=== PATIENT | female | born 1955 | race American Indian/Alaskan Native ===

== ENCOUNTER 2017-06-03 01:28 | Emergency (ER) | payer MEDICAID, OTHER ==
[2017-06-03 03:12] VITALS: BP 160/93
--- NOTE | 2017-06-03 03:46 | Emergency Department Report ---
HPI - General Chief Complaint: Urogenital-Female Time Seen by Provider: 06/03/17 03:23 - HPI HPI: This is a 62-year-old female with no prior history to me presents to ed complaining of labia pain 3 days. patient states 3 days ago she noticed that read boil on her left labia. patient states couple of days ago she noticed some pus- like discharge out of the boil. patient states she noticed that it drains periodically throughout the day. She denies any vaginal discharge, dysuria, vaginal bleed, fever/chills/nausea vomiting ED Past Medical Hx - Past Medical History Hx Hypertension: Yes Hx CVA: Yes Hx Diabetes: No Hx Arthritis: Yes (back) Hx Asthma: Yes Hx COPD: No Hx HIV: No - Surgical History Additional Surgical History: partial hysterectomy - Social History Smoking Status: Never Smoker Substance Use Type: None - Medications Home Medications: Home Medications Medication Instructions Recorded Confirmed Last Taken Type Calcium 600+D3 Plus Caplet 1 tab PO DAILY 04/05/16 04/05/16 Unknown History Fish Oil 1,000 mg Softgel 1 tab PO DAILY 04/05/16 04/05/16 Unknown History Glucosamine HCl 1 tab PO DAILY 04/05/16 04/05/16 Unknown History Multivitamins 1 tab PO DAILY 04/05/16 04/05/16 Unknown History Sucralfate 1 gm PO QID 04/05/16 04/05/16 Unknown History amLODIPine 10 mg PO DAILY 04/05/16 04/05/16 Unknown History Clopidogrel [Plavix] 75 mg PO QDAY #30 tablet 04/06/16 Unknown Rx Simvastatin [Zocor TAB] 20 mg PO QHS #30 tablet 04/06/16 Unknown Rx HYDROcodone/APAP 5-325 [[place] 1 each PO Q6HR PRN #20 tablet 08/12/16 Unknown Rx 5/325] Ibuprofen [Motrin] 600 mg PO Q8H PRN #21 tablet 08/12/16 Unknown Rx Ibuprofen [Motrin] 800 mg PO Q8HR PRN #30 tablet 06/03/17 Unknown Rx Sulfamethoxazole/Trimethoprim 1 each PO BID #14 tablet 06/03/17 Unknown Rx [Bactrim DS TAB] ED Review of Systems ROS: Stated complaint: BUMP IN VAGINAL AREA Other details as noted in HPI Constitutional: denies: chills, fever Eyes: denies: eye pain, eye discharge, vision change ENT: denies: ear pain, throat pain Respiratory: denies: cough, shortness of breath, wheezing Cardiovascular: denies: chest pain, palpitations Endocrine: no symptoms reported Gastrointestinal: denies: abdominal pain, nausea, diarrhea Genitourinary: denies: urgency, dysuria, discharge Musculoskeletal: denies: back pain, joint swelling, arthralgia Skin: denies: rash, lesions Neurological: denies: headache, weakness, paresthesias Psychiatric: denies: anxiety, depression Hematological/Lymphatic: denies: easy bleeding, easy bruising Physical Exam - Physical Exam Vital Signs: Vital Signs 06/03/17 03:05 Temperature 98.1 F Pulse Rate 100 H Blood Pressure 160/93 O2 Sat by Pulse 100 Oximetry Physical Exam: GENERAL: Alert and oriented x3, no apparent distress, Normal Gait, atraumatic. HEAD: Head is normocephalic and a-traumatic. LUNGS: Symetrical with respiration, No wheezing, no rales or crackles, CTAB. HEART: S1, S2 present, regular rate and rhythm without murmur, no rubs, no gallops. Non tender to palpation GENITOURINARY: External genitalia with left labia erythema surrounding a drained small abcsess, non flactulance, tender to palpation. 1 cm in diameter No exudate or discharge. No masses are palpated. SKIN: Warm and dry, No lesions, No ulceration or induration present. ED Course Vital Signs 06/03/17 03:05 Temperature 98.1 F Pulse Rate 100 H Blood Pressure 160/93 O2 Sat by Pulse 100 Oximetry ED Medical Decision Making - Medical Decision Making 62-year-old female presents with injuring small abscess of the labia ED course: Discussed the patient is sent home on antibiotics. Discussed sitz baths with patient 3 times a day. Discussed the patient to keep external vaginal trauma no soaking baths a week. Discussed pain control with Motrin as needed. Vital signs are normal patient has no acute distress. Critical care attestation.: If time is entered above; I have spent that time in minutes in the direct care of this critically ill patient, excluding procedure time. ED Disposition Clinical Impression: Labial abscess, Cellulitis of labia majora Disposition: TO HOME OR SELFCARE Is pt being admited?: No Does the pt Need Aspirin: No Condition: Stable Instructions: Abscess (ED) Additional Instructions: Sitz baths 3 times a day Take oral antibiotic. Follow-up with [facility] as referred Prescriptions: Ibuprofen [Motrin] 800 mg PO Q8HR PRN #30 tablet PRN Reason: Pain Sulfamethoxazole/Trimethoprim [Bactrim DS TAB] 1 each PO BID #14 tablet Referrals: YAQUELIN THOMAS MD [Referring] - 3-5 Days Forms: Work/School Release Form(ED) Time of Disposition: 03:51
== END 2017-06-03 04:15 | disposition home or self-care (01) ==
LOC: ED 01:28
DX: N76.4 Abscess of vulva (principal); N76.2 Acute vulvitis; I10 Essential (primary) hypertension; I63.9 Cerebral infarction, unspecified; M19.90 Unspecified osteoarthritis, unspecified site; J45.909 Unspecified asthma, uncomplicated; Z90.710 Acquired absence of both cervix and uterus
CPT/HCPCS: 99282

== ENCOUNTER 2017-11-24 11:24 | Outpatient (CLI) | payer OTHER, MEDICAID ==
--- NOTE | 2017-11-29 12:54 | XRay Report ---
CHEST 2 VIEWS INDICATION: COPD. COMPARISON: 11/01/2015 FINDINGS: PA and lateral chest radiographs again demonstrate normal cardiomediastinal silhouette. Clear, well-expanded lungs. Multilevel thoracic spondylosis. CONCLUSION: No acute chest process, stable. Thank you for the opportunity to participate in this patient's care.
== END 2017-11-24 11:25 | disposition home or self-care (01) ==
LOC: XRAY 11:24
PROVIDERS: ATTEND Internal Medicine
DX: J44.9 Chronic obstructive pulmonary disease, unspecified (principal); M47.894 Other spondylosis, thoracic region; I63.9 Cerebral infarction, unspecified; I10 Essential (primary) hypertension; M19.90 Unspecified osteoarthritis, unspecified site; Z90.710 Acquired absence of both cervix and uterus
CPT/HCPCS: 36415; 71046; 82785; 84436; 84443

== ENCOUNTER 2018-01-08 09:52 | Emergency (ER) | payer OTHER, MEDICAID ==
--- NOTE | 2018-01-08 11:13 | Emergency Department Report ---
ED General Adult HPI - General Chief complaint: Adult Asthma Stated complaint: ROYA Time Seen by Provider: 01/08/18 10:56 Source: patient, EMS Mode of arrival: Stretcher Limitations: No Limitations - History of Present Illness Initial comments: Patient presents to emergency department with a chief complaint of shortness of breath. Patient has a history of asthma states that she's been having issues breathing since her trip to [facility] last week. Patient denies any chest pain, abdominal pain, headache. Is not having relief at home medications. -: Gradual Radiation: non-radiation Severity scale (0 -10): 0 Consistency: constant Improves with: none Worsens with: none Associated Symptoms: denies other symptoms Treatments Prior to Arrival: none - Related Data Home Medications Medication Instructions Recorded Confirmed Last Taken Calcium 600+D3 Plus Caplet 1 tab PO DAILY 04/05/16 04/05/16 Unknown Fish Oil 1,000 mg Softgel 1 tab PO DAILY 04/05/16 04/05/16 Unknown Glucosamine HCl 1 tab PO DAILY 04/05/16 04/05/16 Unknown Multivitamins 1 tab PO DAILY 04/05/16 04/05/16 Unknown Sucralfate 1 gm PO QID 04/05/16 04/05/16 Unknown amLODIPine 10 mg PO DAILY 04/05/16 04/05/16 Unknown Previous Rx's Medication Instructions Recorded Last Taken Type Clopidogrel [Plavix] 75 mg PO QDAY #30 tablet 04/06/16 Unknown Rx Simvastatin [Zocor TAB] 20 mg PO QHS #30 tablet 04/06/16 Unknown Rx HYDROcodone/APAP 5-325 [[place] 1 each PO Q6HR PRN #20 tablet 08/12/16 Unknown Rx 5/325] Ibuprofen [Motrin] 600 mg PO Q8H PRN #21 tablet 08/12/16 Unknown Rx Ibuprofen [Motrin] 800 mg PO Q8HR PRN #30 tablet 06/03/17 Unknown Rx Sulfamethoxazole/Trimethoprim 1 each PO BID #14 tablet 06/03/17 Unknown Rx [Bactrim DS TAB] ALBUTEROL Inhaler [ProAir HFA 2 puff IH QID PRN #1 inhalation 01/08/18 Unknown Rx Inhaler] Prednisone [predniSONE 10 mg 10 mg PO .TAPER #1 tab.ds.pk 01/08/18 Unknown Rx (6-Day Pack, 21 Tabs)] Allergies Allergy/AdvReac Type Severity Reaction Status Date / Time codeine AdvReac Itching Verified 01/08/18 10:33 iodine AdvReac Itching Verified 01/08/18 10:33 ED Review of Systems ROS: Stated complaint: ROYA Other details as noted in HPI Constitutional: denies: chills, fever Eyes: denies: eye pain, eye discharge, vision change ENT: denies: ear pain, throat pain Respiratory: shortness of breath, wheezing. denies: cough Cardiovascular: denies: chest pain, palpitations Endocrine: no symptoms reported Gastrointestinal: denies: abdominal pain, nausea, diarrhea Genitourinary: denies: urgency, dysuria, discharge Musculoskeletal: denies: back pain, joint swelling, arthralgia Skin: denies: rash, lesions Neurological: denies: headache, weakness, paresthesias Psychiatric: denies: anxiety, depression Hematological/Lymphatic: denies: easy bleeding, easy bruising ED Past Medical Hx - Past Medical History Previous Medical History?: Yes Hx Hypertension: Yes Hx CVA: Yes (TIA) Hx Diabetes: No Hx Arthritis: Yes (back) Hx Asthma: Yes Hx COPD: No Hx HIV: No - Surgical History Past Surgical History?: Yes Additional Surgical History: partial hysterectomy - Social History Smoking Status: Former Smoker Substance Use Type: Alcohol - Medications Home Medications: Home Medications Medication Instructions Recorded Confirmed Last Taken Type Calcium 600+D3 Plus Caplet 1 tab PO DAILY 04/05/16 04/05/16 Unknown History Fish Oil 1,000 mg Softgel 1 tab PO DAILY 04/05/16 04/05/16 Unknown History Glucosamine HCl 1 tab PO DAILY 04/05/16 04/05/16 Unknown History Multivitamins 1 tab PO DAILY 04/05/16 04/05/16 Unknown History Sucralfate 1 gm PO QID 04/05/16 04/05/16 Unknown History amLODIPine 10 mg PO DAILY 04/05/16 04/05/16 Unknown History Clopidogrel [Plavix] 75 mg PO QDAY #30 tablet 04/06/16 Unknown Rx Simvastatin [Zocor TAB] 20 mg PO QHS #30 tablet 04/06/16 Unknown Rx HYDROcodone/APAP 5-325 [[place] 1 each PO Q6HR PRN #20 tablet 08/12/16 Unknown Rx 5/325] Ibuprofen [Motrin] 600 mg PO Q8H PRN #21 tablet 08/12/16 Unknown Rx Ibuprofen [Motrin] 800 mg PO Q8HR PRN #30 tablet 06/03/17 Unknown Rx Sulfamethoxazole/Trimethoprim 1 each PO BID #14 tablet 06/03/17 Unknown Rx [Bactrim DS TAB] ALBUTEROL Inhaler [ProAir HFA 2 puff IH QID PRN #1 inhalation 01/08/18 Unknown Rx Inhaler] Prednisone [predniSONE 10 mg 10 mg PO .TAPER #1 tab.ds.pk 01/08/18 Unknown Rx (6-Day Pack, 21 Tabs)] ED Physical Exam - General Limitations: No Limitations General appearance: alert, in no apparent distress - Head Head exam: Present: atraumatic, normocephalic - Eye Eye exam: Present: normal appearance, PERRL, EOMI - ENT ENT exam: Present: mucous membranes moist - Neck Neck exam: Present: normal inspection - Respiratory Respiratory exam: Present: normal lung sounds bilaterally, wheezes, other (mild expiratory wheezing ). Absent: respiratory distress, rales - Cardiovascular Cardiovascular Exam: Present: regular rate, normal rhythm. Absent: systolic murmur, diastolic murmur, rubs, gallop - GI/Abdominal GI/Abdominal exam: Present: soft, normal bowel sounds. Absent: distended, tenderness - Extremities Exam Extremities exam: Present: normal inspection - Back Exam Back exam: Present: normal inspection - Neurological Exam Neurological exam: Present: alert, oriented X3 - Psychiatric Psychiatric exam: Present: normal affect, normal mood - Skin Skin exam: Present: warm, dry, intact, normal color. Absent: rash ED Course Vital Signs 01/08/18 10:26 Temperature 98.1 F Pulse Rate 118 H Respiratory 20 Rate Blood Pressure 135/81 O2 Sat by Pulse 98 Oximetry ED Medical Decision Making - Medical Decision Making Patient states after her breathing treatment she feels significant better and is ready to go home. Patient politely declined further workup. Critical care attestation.: If time is entered above; I have spent that time in minutes in the direct care of this critically ill patient, excluding procedure time. ED Disposition Clinical Impression: Asthma Disposition: DC-01 TO HOME OR SELFCARE Is pt being admited?: No Does the pt Need Aspirin: No Condition: Stable Instructions: Asthma (ED) Additional Instructions: Return if worse Prescriptions: ALBUTEROL Inhaler [ProAir HFA Inhaler] 2 puff IH QID PRN #1 inhalation PRN Reason: Shortness Of Breath Prednisone [predniSONE 10 mg (6-Day Pack, 21 Tabs)] 10 mg PO .TAPER #1 tab.ds.pk Referrals: PRIMARY CARE, [Primary Care Provider] - 3-5 Days Time of Disposition: 11:12
[2018-01-08 12:07] VITALS: BP 148/95
== END 2018-01-08 11:35 | disposition home or self-care (01) ==
LOC: ED 09:52
DX: J45.909 Unspecified asthma, uncomplicated (principal); I10 Essential (primary) hypertension; M19.90 Unspecified osteoarthritis, unspecified site; Z87.891 Personal history of nicotine dependence; Z90.711 Acquired absence of uterus with remaining cervical stump; Z86.73 Personal history of transient ischemic attack (TIA), and cerebral infarction without residual deficits; Z88.5 Allergy status to narcotic agent; Z91.02 Food additives allergy status
CPT/HCPCS: 99283

== ENCOUNTER 2018-01-18 10:58 | Emergency (ER) | payer OTHER, MEDICAID ==
[2018-01-18 11:37] VITALS: BP 173/94
== END 2018-01-18 12:00 | disposition left against medical advice (07) ==
LOC: ED 10:58
DX: I10 Essential (primary) hypertension (principal); M19.90 Unspecified osteoarthritis, unspecified site; J45.909 Unspecified asthma, uncomplicated; Z86.73 Personal history of transient ischemic attack (TIA), and cerebral infarction without residual deficits; Z90.711 Acquired absence of uterus with remaining cervical stump; Z53.21 Procedure and treatment not carried out due to patient leaving prior to being seen by health care provider
CPT/HCPCS: 93005; 93010

== ENCOUNTER 2018-07-13 16:12 | Emergency (ER) | payer MEDICAID, OTHER ==
[2018-07-13 16:29] VITALS: BP 140/79
[2018-07-13] MEDS ORDERED: TORADOL IM ONE (20:19)
[2018-07-13] MEDS ORDERED: NORCO 5/325 PO ONE (20:20)
[2018-07-13] MEDS ORDERED: FLEXERIL PO ONE (20:20)
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
== END 2018-07-13 20:44 | disposition home or self-care (01) ==
LOC: ED 16:12
DX: M54.6 Pain in thoracic spine (principal); M25.511 Pain in right shoulder; M25.512 Pain in left shoulder; M54.2 Cervicalgia; I10 Essential (primary) hypertension; M19.90 Unspecified osteoarthritis, unspecified site; J45.909 Unspecified asthma, uncomplicated; E78.00 Pure hypercholesterolemia, unspecified; Z86.73 Personal history of transient ischemic attack (TIA), and cerebral infarction without residual deficits; Z90.710 Acquired absence of both cervix and uterus; Z88.6 Allergy status to analgesic agent; Z88.8 Allergy status to other drugs, medicaments and biological substances
CPT/HCPCS: 96372; 99282; J1885

== ENCOUNTER 2019-08-19 08:39 | Emergency (ER) | payer MEDICAID, OTHER ==
[2019-08-19 08:44] VITALS: BP 166/94
[2019-08-19] MEDS ORDERED: KETOROLAC 30 MG/1 ML INJ IM ONE (10:25)
--- NOTE | 2019-08-19 10:26 | Emergency Department Report ---
ED Upper Extremity Inj HPI - General Chief Complaint: Extremity Problem,Nontraumatic Stated Complaint: LFT ARM PAIN Time Seen by Provider: 08/19/19 09:40 Source: patient Mode of arrival: Wheelchair Limitations: No Limitations - History of Present Illness Initial Comments: This is a 64-year-old -Citizen Of The [place] female day presents to the emergency room with left shoulder pain radiating to fingers for 1 week. Patient states she was seen by her PCP Dr. Nicolette Lorenz when symptoms started. She was told it possibly is carpal tunnel. Patient states it feels like a band is pulling from the left shoulder to the right third, fourth, and fifth fingers. States pain is worse than contractions. She is applying heating pad. Patient states she was prescribed pain medication by PCP which is denied improving symptoms. Patient states she has pharmacist it [facility] if she could take something other than narcotic medication. She was told to take Tylenol extra strength with no improvement of symptoms. She denies numbness or tingling, weakness, recent injury, swelling, or bruising. MD Complaint: Injury to:: right, arm Onset/Timin -: week(s) Other Extremity Injury: Shoulder: Right Other Injuries: none Handedness: right Place: home Severity scale (0 -10): 10 Improves With: none Worsens With: movement of extremity Associated Symptoms: denies other symptoms Treatments Prior to Arrival: NSAIDS, other (Heat therapy) - Related Data Home Medications Medication Instructions Recorded Confirmed Last Taken Calcium 600+D3 Plus Caplet 1 tab PO DAILY 04/05/16 04/05/16 Unknown Fish Oil 1,000 mg Softgel 1 tab PO DAILY 04/05/16 04/05/16 Unknown Glucosamine HCl 1 tab PO DAILY 04/05/16 04/05/16 Unknown Multivitamins 1 tab PO DAILY 04/05/16 04/05/16 Unknown Sucralfate 1 gm PO QID 04/05/16 04/05/16 Unknown amLODIPine 10 mg PO DAILY 04/05/16 04/05/16 Unknown Previous Rx's Medication Instructions Recorded Last Taken Type Clopidogrel [Plavix] 75 mg PO QDAY #30 tablet 04/06/16 Unknown Rx Simvastatin (Nf) [Zocor TAB] 20 mg PO QHS #30 tablet 04/06/16 Unknown Rx HYDROcodone/APAP 5-325 [Deane 1 each PO Q6HR PRN #20 tablet 08/12/16 Unknown Rx 5/325] Ibuprofen [Motrin] 600 mg PO Q8H PRN #21 tablet 08/12/16 Unknown Rx Ibuprofen [Motrin] 800 mg PO Q8HR PRN #30 tablet 06/03/17 Unknown Rx Sulfamethoxazole/Trimethoprim 1 each PO BID #14 tablet 06/03/17 Unknown Rx [Bactrim DS TAB] Albuterol INH(or & Nicu Only) 2 puff IH QID PRN #1 inhalation 01/08/18 Unknown Rx [ProAir HFA Inhaler] Prednisone [predniSONE 10 mg 10 mg PO .TAPER #1 tab.ds.pk 01/08/18 Unknown Rx (6-Day Pack, 21 Tabs)] Baclofen [Lioresal] 10 mg PO TID #15 tab 07/13/18 Unknown Rx Naproxen [Naprosyn TAB] 500 mg PO BID #10 tablet 07/13/18 Unknown Rx Allergies Allergy/AdvReac Type Severity Reaction Status Date / Time codeine AdvReac Itching Verified 07/13/18 16:29 iodine AdvReac Itching Verified 07/13/18 16:29 ED Review of Systems ROS: Stated complaint: LFT ARM PAIN Other details as noted in HPI Constitutional: denies: chills, fever Respiratory: denies: cough, shortness of breath, wheezing Cardiovascular: denies: chest pain, palpitations Gastrointestinal: denies: abdominal pain, nausea, diarrhea Musculoskeletal: arthralgia (Right shoulder pain). denies: back pain, joint swelling Skin: denies: rash, lesions Neurological: denies: headache, weakness, paresthesias Psychiatric: denies: anxiety, depression ED Past Medical Hx - Past Medical History Previous Medical History?: Yes Hx Hypertension: Yes Hx CVA: Yes (TIA) Hx Diabetes: No Hx Arthritis: Yes (back) Hx Asthma: Yes Hx COPD: No Hx HIV: No Additional medical history: high cholesterol, vertigo - Surgical History Past Surgical History?: Yes Additional Surgical History: hysterectomy - Social History Smoking Status: Never Smoker Substance Use Type: Alcohol - Medications Home Medications: Home Medications Medication Instructions Recorded Confirmed Last Taken Type Calcium 600+D3 Plus Caplet 1 tab PO DAILY 04/05/16 04/05/16 Unknown History Fish Oil 1,000 mg Softgel 1 tab PO DAILY 04/05/16 04/05/16 Unknown History Glucosamine HCl 1 tab PO DAILY 04/05/16 04/05/16 Unknown History Multivitamins 1 tab PO DAILY 04/05/16 04/05/16 Unknown History Sucralfate 1 gm PO QID 04/05/16 04/05/16 Unknown History amLODIPine 10 mg PO DAILY 04/05/16 04/05/16 Unknown History Clopidogrel [Plavix] 75 mg PO QDAY #30 tablet 04/06/16 Unknown Rx Simvastatin (Nf) [Zocor TAB] 20 mg PO QHS #30 tablet 04/06/16 Unknown Rx HYDROcodone/APAP 5-325 [Deane 1 each PO Q6HR PRN #20 tablet 08/12/16 Unknown Rx 5/325] Ibuprofen [Motrin] 600 mg PO Q8H PRN #21 tablet 08/12/16 Unknown Rx Ibuprofen [Motrin] 800 mg PO Q8HR PRN #30 tablet 06/03/17 Unknown Rx Sulfamethoxazole/Trimethoprim 1 each PO BID #14 tablet 06/03/17 Unknown Rx [Bactrim DS TAB] Albuterol INH(or & Nicu Only) 2 puff IH QID PRN #1 inhalation 01/08/18 Unknown Rx [ProAir HFA Inhaler] Prednisone [predniSONE 10 mg 10 mg PO .TAPER #1 tab.ds.pk 01/08/18 Unknown Rx (6-Day Pack, 21 Tabs)] Baclofen [Lioresal] 10 mg PO TID #15 tab 07/13/18 Unknown Rx Naproxen [Naprosyn TAB] 500 mg PO BID #10 tablet 07/13/18 Unknown Rx ED Physical Exam - General Limitations: No Limitations General appearance: alert, in no apparent distress - Respiratory Respiratory exam: Present: normal lung sounds bilaterally. Absent: respiratory distress - Cardiovascular Cardiovascular Exam: Present: regular rate, normal rhythm. Absent: systolic murmur, diastolic murmur, rubs, gallop - GI/Abdominal GI/Abdominal exam: Present: soft, normal bowel sounds - Extremities Exam Extremities exam: Present: normal inspection - Expanded Upper Extremity Exam Right Shoulder Exam: Present: tenderness over AC joint. Absent: full ROM (Limited range of motion secondary to pain), swelling, abrasion, laceration, ecchymosis, deformity, crepidus, dislocation, erythema Upper Arm exam: Present: normal inspection, full ROM Elbow exam: Present: normal inspection, full ROM Forearm Wrist exam: Present: normal inspection, full ROM Hand Wrist exam: Present: normal inspection, full ROM Neuro motor exam: Present: wrist extension intact, thumb opposition intact, thumb IP flexion intact, thumb adduction intact, fingers 2-5 abduction intact Neurosensory exam: Present: radial nerve intact, ulnar nerve intact, median nerve intact Vascular: Present: normal capillary refill (Brisk), radial pulse (+2) - Neurological Exam Neurological exam: Present: alert, oriented X3, normal gait - Psychiatric Psychiatric exam: Present: normal affect, normal mood - Skin Skin exam: Present: warm, dry, intact, normal color. Absent: rash ED Course Vital Signs 08/19/19 08/19/19 08:43 10:29 Temperature 97 F L Pulse Rate 120 H 78 Respiratory 16 16 Rate Blood Pressure 166/94 [Right] O2 Sat by Pulse 999 H 97 Oximetry ED Medical Decision Making - Radiology Data Radiology results: report reviewed LEFT SHOULDER 3 VIEWS INDICATION: ac joint pain. COMPARISON: No relevant prior imaging study available. FINDINGS: No fracture or dislocation is seen. There is mild acromioclavicular degenerative change. Low lying distal acromion could result in encroachment. No significant glenohumeral degenerative change. No soft tissue calcifications. IMPRESSION: 1. No acute findings. - Medical Decision Making 64-year-old female complaining of left shoulder pain radiating down the arm for 2 weeks. Patient was examined by me. Patient is nontoxic appearing and stable. Vitals are stable. Obtained x-ray of left shoulder with no acute radiographic findings. There is limited range of motion with pain of left shoulder on exam. No signs of obvious deformity or trauma. Referrals given to follow-up with orthopedic surgeon. Instructed to continue taking tramadol prescribed by PCP. She was given strict return precautions. Patient discharged with prompt follow- up with primary care physician and orthopedic surgeon. Critical care attestation.: If time is entered above; I have spent that time in minutes in the direct care of this critically ill patient, excluding procedure time. ED Disposition Clinical Impression: Left anterior shoulder pain, Arthralgia of shoulder region, left Disposition: DC-01 TO HOME OR SELFCARE Is pt being admited?: No Condition: Stable Instructions: Arthralgia (ED) Additional Instructions: Rest Use ice or heat on affected area for 20 minutes and off for 2 hours. Continue taking tramadol pain medication as prescribed by your primary care doct or. I have provided a list of orthopedic surgeons for you to follow-up with. Follow up with Primary Care Provider in 2-3 days. Referrals: SANDRA MCPHERSON MD [Referring] - 3-5 Days NICOLETTE LORENZ MD [Primary Care Provider] - 3-5 Days DEVONTE BECKHAM MD [Staff Physician] - 3-5 Days [facility] [Provider Group] - 3-5 Days Time of Disposition: 12:03
--- NOTE | 2019-08-19 10:53 | XRay Report ---
LEFT SHOULDER 3 VIEWS INDICATION: ac joint pain. COMPARISON: No relevant prior imaging study available. FINDINGS: No fracture or dislocation is seen. There is mild acromioclavicular degenerative change. Low lying di stal acromion could result in encroachment. No significant glenohumeral degenerative change. No soft tissue calcifications. IMPRESSION: 1. No acute findings. Signer Name: Deric Hopkins MD Signed: 08/19/2019 10:49 AM Workstation Name: [id number]
== END 2019-08-19 12:17 | disposition home or self-care (01) ==
LOC: ED 08:39
DX: M25.512 Pain in left shoulder (principal); I10 Essential (primary) hypertension; J45.909 Unspecified asthma, uncomplicated; E78.00 Pure hypercholesterolemia, unspecified; Z90.710 Acquired absence of both cervix and uterus; Z79.899 Other long term (current) drug therapy; Z86.73 Personal history of transient ischemic attack (TIA), and cerebral infarction without residual deficits; Z88.6 Allergy status to analgesic agent
CPT/HCPCS: 73030; 96372; 99283; J1885